=== PATIENT | male | born 1990 | race African-American/Black ===

== ENCOUNTER 2023-02-20 00:43 | Emergency (ER) | payer SELFPAY ==
[~2023-02-20] VITALS: Ht 185.4 cm; Wt 91.0 kg
[2023-02-20 00:46] VITALS: O2SAT 98
[2023-02-20] MEDS ORDERED: NALO4SPR BOTHNSTRLS (00:56)
[2023-02-20] MEDS ORDERED: ONDA4TAB50 MT (00:56)
[2023-02-20] MEDS ORDERED: ACET-2708 MT (00:56)
[2023-02-20] MEDS ORDERED: ONDANSETRON 4MG ODT PO ONE (01:00)
[2023-02-20] MEDS ORDERED: ACETAMINOPHEN 325MG TABLET PO ONE (01:00)
[2023-02-20] MEDS ORDERED: GUAIFENESIN 600MG ER TABLET PO ONE (01:00)
[2023-02-20 01:43] VITALS: BP 135/90; PULSE 96; RESP 18; TEMP 98.4
== END 2023-02-20 01:45 | disposition home or self-care (01) ==
LOC: ER 00:43
DX: F15.10 Other stimulant abuse, uncomplicated (principal); F11.90 Opioid use, unspecified, uncomplicated
CPT/HCPCS: 99283